=== PATIENT | male | born 2000 | race Caucasian/White ===

== ENCOUNTER 2024-09-12 04:44 | Emergency (ER) | payer OTHER ==
[~2024-09-12] VITALS: Ht 170.2 cm; Wt 74.5 kg
[2024-09-12 04:52] VITALS: BP 112/77; PULSE 47; RESP 16; TEMP 98.1; O2SAT 99
[2024-09-12] MEDS: ACETAMINOPHEN 500 MG TABLET PO ONE (06:02)
[2024-09-12] MEDS: IBUPROFEN 400 MG TABLET PO ONE (06:02)
== END 2024-09-12 06:16 ==
LOC: EMS 04:44
DX: S60.222A Contusion of left hand, initial encounter (principal); W21.05XA Struck by basketball, initial encounter; Y93.67 Activity, basketball; Y92.89 Other specified places as the place of occurrence of the external cause; Y99.8 Other external cause status
CPT/HCPCS: 99283